=== PATIENT | female | born 1995 | race Two or more races ===

== ENCOUNTER 2022-03-16 13:45 | Emergency (ER) | payer SELFPAY | END 2022-03-16 14:29 | disposition home or self-care (01) | LOC: NAV ERS 13:45 | DX: B34.9 Viral infection, unspecified (principal); F17.290 Nicotine dependence, other tobacco product, uncomplicated | CPT/HCPCS: 99283 ==

== ENCOUNTER 2022-03-22 15:40 | Emergency (ER) | payer SELFPAY ==
[2022-03-22] MEDS ORDERED: Ketorolac Tromethamine 60 MG/2 ML VIAL ONE (16:51)
== END 2022-03-22 17:01 | disposition home or self-care (01) ==
LOC: NAV ERS 15:40
DX: J02.8 Acute pharyngitis due to other specified organisms (principal)
CPT/HCPCS: 96372; 99283; J1885